=== PATIENT | male | born 1965 | race Caucasian/White ===

== ENCOUNTER 2024-02-18 04:58 | Observation (INO) ==
[2024-02-18] MEDS ORDERED: Lorazepam PYXIS KEY PRN (09:36)
[2024-02-18 09:54] LABS: Urine Benzodiazepine Screen None Detected (None Detect); Urine Cannabinoids Screen None Detected (None Detect); Urine Opiates Screen None Detected (None Detect)
[2024-02-18 09:56] LABS: Hematocrit 42.6 % (38-53); Mean Corpuscular Hemoglobin 33.9 pg (27-33); Mean Corpuscular Hgb Conc 35.3 g/dL (31-36); Mean Corpuscular Volume 95.9 fL (80-97); Red Blood Count 4.44 10^6/uL (4.06-5.63); Red Cell Distribution Width 13.3 % (12-17); White Blood Count 9.7 10^3/uL (3.6-10.2)
[2024-02-18 10:00] LABS: Urine Appearance Clear; Urine Bilirubin Negative (Negative); Urine Blood Negative (Negative); Urine Color Colorless; Urine Glucose Negative (Negative); Urine Ketones Negative (Negative); Urine Nitrite Negative (Negative); Urine Protein Negative (Negative); Urine Specific Gravity 1.007 (1.002-1.030); Urine Urobilinogen Negative (Negative); Urine pH 7.5 (5.0-8.0)
[2024-02-18 10:14] LABS: ALT 19 U/L (7-52); AST 30 U/L (13-39); Acetaminophen < 15 mcg/mL; Albumin 4.7 g/dL (3.2-5.2); Albumin/Globulin Ratio 1.8 (1-3); Alcohol, S < 13 mg/dL (<13); Alkaline Phosphatase 73 U/L (35-149); Anion Gap 13 mmol/L (2-16); Blood Urea Nitrogen 21 mg/dL (6-24); CO2 Carbon Dioxide 28 mmol/L (22-32); Calcium 9.9 mg/dL (8.6-10.3); Chloride 94 mmol/L (101-111); Creatine Kinase 239 U/L (10-223); Creatinine, Serum 0.92 mg/dL (0.67-1.17); Globulin 2.6 g/dL (2-4); Glucose 105 mg/dL (70-100); Potassium 4.1 mmol/L (3.5-5.0); Salicylate < 2.50 mg/dL (<30); Sodium 135 mmol/L (135-145); Total Protein 7.3 g/dL (6.4-8.9); eGFR CKD-EPI 95.8 (>60)
[2024-02-18] MEDS: Multivitamins/Minerals TAB PO SCH (10:15)
[2024-02-18] MEDS: Thiamine 100 MG/ML 2 ml VIAL (200 mg) IM ONE (10:15)
[2024-02-18] MEDS: LORazepam 2 mg VIAL 1 ml IV PUSH ONE (10:15)
[2024-02-18 10:29] LABS: TSH Ultra Thyroid Stim Horm 1.61 mcIU/mL (0.34-5.60)
[2024-02-18 10:58] LABS: ABS Basophils 0.1 10^3/uL (0.0-0.1); ABS Lymphocytes 1.3 10^3/uL (1.0-4.8); ABS Monocytes 0.8 10^3/uL (0.0-1.1); ABS Neutrophils 7.6 10^3/uL (1.5-7.6); ABS Nucleated RBC 0.01 10^3/ul; Eosinophil % 0.1 %; Lymphocyte % 12.9 %; Mean Platelet Volume 8.6 fL (7.5-11.2); Nucleated Red Blood Cells % 0.1 %/100WBC (0.0-0.8); Platelet Count 207 10^3/uL (150-450)
[2024-02-18] MEDS: Famotidine IV 10 MG/ML 2 ml VIAL (20 mg) IV SLOW PU ONE (11:54)
[2024-02-18] MEDS: LORazepam 2 mg VIAL 1 ml IV PUSH SCH (11:55)
[2024-02-18] MEDS: Lactated Ringers 1000 ml BAG 1,000 ML IV ONE (14:33)
[2024-02-18] MEDS ORDERED: Ondansetron 4 mg VIAL 2 MG/ML 2 ml VIAL IV PRN (15:23)
[2024-02-19] MEDS: Multivitamins/Minerals TAB PO SCH (08:22)
[2024-02-19 12:08] LABS: ALT 18 U/L (7-52); AST 26 U/L (13-39); Albumin 4.1 g/dL (3.2-5.2); Alkaline Phosphatase 78 U/L (35-149); Anion Gap 10 mmol/L (2-16); Blood Urea Nitrogen 22 mg/dL (6-24); CO2 Carbon Dioxide 25 mmol/L (22-32); Calcium 8.8 mg/dL (8.6-10.3); Chloride 104 mmol/L (101-111); Creatinine, Serum 0.97 mg/dL (0.67-1.17); Globulin 2.1 g/dL (2-4); Glucose 121 mg/dL (70-100); Potassium 3.9 mmol/L (3.5-5.0); Sodium 139 mmol/L (135-145); Total Bilirubin 1.5 mg/dL (0.2-1.0); Total Protein 6.2 g/dL (6.4-8.9); eGFR CKD-EPI 89.9 (>60)
[2024-02-19 12:27] LABS: Folate > 20.00 ng/mL (5.90-24.80)
[2024-02-19 12:28] LABS: Vitamin B12 252 pg/mL (180-914)
[2024-02-19 14:16] VITALS: BP 151/100
== END 2024-02-19 14:39 | disposition home or self-care (01) ==
LOC: EDHOLD 04:58 → ED 04:58 → SUATTDRO 15:07 → MEDTELE 17:41
PROVIDERS: ADMIT Internal Medicine; ATTEND Internal Medicine